=== PATIENT | male | born 1960 | race Caucasian/White ===

== ENCOUNTER 2025-01-08 00:27 | Inpatient (IN) | payer OTHER ==
[2025-01-08 01:35] LABS: ABSOLUTE IMMATURE GRANULOCYTES 0.03 x10^3/uL (0.0-0.031); BASOPHILS # 0.02 x10^3/uL (0.01-0.08); EOSINOPHIL % 1.9 % (0.8-7.0); EOSINOPHILS # 0.12 x10^3/uL (0.04-0.54); MCHC 32.3 g/dl (32.3-36.5); MEAN CELL VOLUME 91.7 fl (79.0-92.2); MEAN PLT VOLUME 8.7 fl (9.4-12.4); MONOCYTE # 0.73 x10^3/uL (0.30-0.82); MONOCYTE % 11.8 % (5.3-12.2); RDW 12.7 % (12.2-16.4)
[2025-01-08 01:43] LABS: INR 0.95 (0.83-1.09); PROTHROMBIN TIME (PATIENT) 10.4 SEC (9.7-13.0)
[2025-01-08 01:45] LABS: ACTIVATED PTT 29.4 SECONDS (25.2-36.5)
[2025-01-08 02:10] LABS: CO2 25.0 mmol/L (21-32); GLUCOSE,RANDOM 114.0 mg/dL (74-106)
[2025-01-08 02:19] LABS: ALK PHOS 98.0 U/L (45-117); CREATININE 1.8 mg/dL (0.55-1.3); N-TERMINAL BNP 287.4 pg/ml (5-125); SGOT/AST 23.0 U/L (15-37); SGPT/ALT 22.0 U/L (13-61); TOT PROT 6.7 g/dl (6.4-8.2)
[2025-01-08] MEDS ORDERED: FUROSEMIDE 40 MG/4 ML INJECTABLE VIAL ONE (02:55)
[2025-01-08 02:56] LABS: HCV DIAGNOSTIC IN-HOUSE W/RFLX NON-REACTIVE (NONREACTIVE)
[2025-01-08] MEDS: FUROSEMIDE 100 MG/10 ML INJECTABLE VIAL IVPB ONE (02:59)
[2025-01-08 03:17] LABS: URINE APPEARANCE CLEAR; URINE BILIRUBIN NEGATIVE (NEGATIVE); URINE COLOR YELLOW; URINE GLUCOSE (UA) NEGATIVE (NEGATIVE); URINE KETONE NEGATIVE (NEGATIVE); URINE LEUK ESTERASE NEGATIVE (NEGATIVE); URINE NITRITE NEGATIVE (NEGATIVE); URINE PROTEIN NEGATIVE (NEGATIVE); URINE UROBILINOGEN 0.2 mg/dL (0.2-1.0)
[2025-01-08 06:58] VITALS: BMI 26.4
[2025-01-08] MEDS: HEPARIN NA (PORCINE) 5,000 UNITS/ML 1ML VIAL SQ SCH (06:59)
[2025-01-08] MEDS: FUROSEMIDE 40 MG/4 ML INJECTABLE VIAL IVPUSH SCH (06:59)
[2025-01-08 07:35] LABS: COCAINE, UR NEGATIVE (NEGATIVE); PHENCYCLIDINE,URINE NEGATIVE (NEGATIVE); URINE BENZODIAZEPINES NEGATIVE (NEGATIVE)
[2025-01-08 07:36] LABS: METHADONE, UR NEGATIVE (NEGATIVE)
[2025-01-08 08:10] LABS: ABSOLUTE IMMATURE GRANULOCYTES 0.04 x10^3/uL (0.0-0.031); BASOPHILS # 0.02 x10^3/uL (0.01-0.08); EOSINOPHIL % 1.6 % (0.8-7.0); EOSINOPHILS # 0.12 x10^3/uL (0.04-0.54); MCHC 32.5 g/dl (32.3-36.5); MEAN CELL VOLUME 90.6 fl (79.0-92.2); MEAN PLT VOLUME 9.2 fl (9.4-12.4); MONOCYTE # 0.83 x10^3/uL (0.30-0.82); MONOCYTE % 11.1 % (5.3-12.2); RDW 12.7 % (12.2-16.4)
[2025-01-08 08:31] LABS: CO2 26.0 mmol/L (21-32); GLUCOSE,RANDOM 96.0 mg/dL (74-106)
[2025-01-08 08:33] LABS: IRON SERUM 50.0 ug/dL (50-175)
[2025-01-08 08:34] LABS: CREATININE 1.8 mg/dL (0.55-1.3); SGOT/AST 25.0 U/L (15-37); SGPT/ALT 26.0 U/L (13-61)
[2025-01-08 08:36] LABS: TOT PROT 7.2 g/dl (6.4-8.2)
[2025-01-08 08:37] LABS: ALK PHOS 99.0 U/L (45-117)
[2025-01-08 08:41] LABS: OPIATES, URI NEGATIVE (NEGATIVE); URINE BARBITURATES NEGATIVE (NEGATIVE)
[2025-01-08] MEDS ORDERED: FUROSEMIDE 40 MG/4 ML INJECTABLE VIAL IVPUSH SCH (10:00)
[2025-01-08] MEDS: CALCIUM 500MG/VIT-D 200 UNITS COMBO TABLET (FP) PO SCH (11:58)
[2025-01-08] MEDS: FERROUS SO4 325 MG TABLET (FP) PO SCH (11:58)
[2025-01-08 19:06] LABS: HIV INTERPRETATION NEGATIVE (NEGATIVE)
[2025-01-08] MEDS: ACETAMINOPHEN 325 MG TABLET (FP) PO PRN (23:54)
[2025-01-09 00:52] LABS: URINE AMPHETAMINES NEGATIVE (NEGATIVE)
[2025-01-09 08:09] LABS: MCHC 32.7 g/dl (32.3-36.5); MEAN CELL VOLUME 90.6 fl (79.0-92.2); MEAN PLT VOLUME 9.3 fl (9.4-12.4); RDW 12.7 % (12.2-16.4)
[2025-01-09] MEDS ORDERED: CYANOCOBALAMIN (VITAMIN B-12) 1000 MCG/1 ML VIAL IM ONE (08:30)
[2025-01-09 08:36] LABS: CO2 25.0 mmol/L (21-32); GLUCOSE,RANDOM 120.0 mg/dL (74-106)
[2025-01-09 08:39] LABS: CREATININE 1.8 mg/dL (0.55-1.3)
[2025-01-09] MEDS: FUROSEMIDE 40 MG TABLET (FP) PO SCH (11:25)
[2025-01-09] MEDS: CYANOCOBALAMIN (VITAMIN B-12) 1000 MCG/1 ML VIAL IM ONE (14:38)
[2025-01-10 07:10] LABS: MCHC 32.4 g/dl (32.3-36.5); MEAN CELL VOLUME 90.5 fl (79.0-92.2); MEAN PLT VOLUME 9.2 fl (9.4-12.4); RDW 12.4 % (12.2-16.4)
[2025-01-10 07:27] VITALS: RESP 18
[2025-01-10 07:38] LABS: CO2 24.0 mmol/L (21-32)
[2025-01-10 07:39] LABS: GLUCOSE,RANDOM 91.0 mg/dL (74-106)
[2025-01-10 07:42] LABS: CREATININE 1.6 mg/dL (0.55-1.3)
[2025-01-10 09:32] VITALS: BP 108/68; PULSE 67; TEMP 98.2
== END 2025-01-10 15:25 | disposition home or self-care (01) | DRG 291 ==
LOC: JER 00:27 → JERBED 03:31 → J7W 06:02 → OBSVTOIN 08:45
PROVIDERS: ADMIT Internal Medicine; ATTEND Student in an Organized Health Care Education/Training Program
DX: I11.0 Hypertensive heart disease with heart failure (principal); I50.31 Acute diastolic (congestive) heart failure; Z59.01 Sheltered homelessness; D64.9 Anemia, unspecified; F17.210 Nicotine dependence, cigarettes, uncomplicated; Z99.3 Dependence on wheelchair
CPT/HCPCS: 36415; 71045-TC-FY; 73590-TC-LT-FY; 73590-TC-RT-FY; 73610-TC-LT-FY; 73610-TC-RT-FY; 73630-TC-LT; 73630-TC-RT-FY; 76775-TC; 80048; 80053; 80307; 81003; 82550; 82553; 82570; 82607; 82728; 82746; 83540; 83550; 83735; 83880; 84100; 84300; 84484; 85025; 85027; 85610; 85651; 85730; 86140; 86803; 86850; 86900; 86901; 87086; 87389; 87637-QW; 93005; 93010; 93306-TC; 93970-TC; 97116-GP; 97162-GP; 99285-25; G0378